=== PATIENT | female | born 1940 | race Caucasian/White ===

== ENCOUNTER 2019-11-15 12:56 | Observation (INO) ==
[2019-11-15] MEDS ORDERED: Isovue-370 500 ML BOTTLE IVP ONE (13:13)
[2019-11-15 13:32] LABS: Basophils % 0.4 %; Eosinophils # 0.1 K/mcL (0.0-0.6); Eosinophils % 0.9 %; Hematocrit 36.9 % (35.3-44.9); Hemoglobin 12.9 g/dL (11.5-15.4); Immature Granulocytes % 0.4 % (0-4); Lymphocytes # 1.6 K/mcL (0.6-4.6); Mean Corpuscular Hemoglobin 30.7 pg (28.0-33.3); Mean Corpuscular Volume 87.9 fL (83.0-100.0); Mean Platelet Volume 8.8 fL (9.4-12.4); Monocytes # 0.3 K/mcL (0.0-1.3); Monocytes % 5.8 %; Neutrophils # 3.6 K/mcL (1.6-8.9); Platelet Count 211 K/mcL (140-400); Red Cell Distribution Width 11.7 % (11.5-14.5); Segmented Neutrophils % 63.5 %; White Blood Count 5.7 K/mcL (4.3-11.1)
[2019-11-15 13:46] LABS: BUN/Creatinine Ratio 39 (6-26); Blood Urea Nitrogen 27 mg/dL (8-23); Calcium 11.3 mg/dL (8.6-10.3); Carbon Dioxide 28 mEq/L (23-29); Chloride 91 mEq/L (98-107); Glucose 107 mg/dL (70-105); Osmolality,Calculated 268 (280-300); Sodium 126 mEq/L (136-145); eGFR For African Americans > 60 (> 60); eGFR For Non-African Americans > 60 (> 60)
[2019-11-15] MEDS ORDERED: Naloxone 0.4 MG/ML INJ IVP PRN (15:10)
[2019-11-15] MEDS ORDERED: Acetaminophen 325 MG TABLET PO PRN (15:10)
[2019-11-15] MEDS ORDERED: Ondansetron 4 MG/2 ML VIAL IVP PRN (15:10)
[2019-11-15] MEDS: 0.9 % Sodium Chloride 1,000 ML IVC SCH (17:59)
[2019-11-15] MEDS: MethylPREDNISolone 40 MG/ML VIAL IVP SCH ×2 (18:00→23:17)
[2019-11-15] MEDS: Famotidine 20 MG/2 ML VIAL IVP SCH (18:00)
[2019-11-16] MEDS: 0.9 % Sodium Chloride 1,000 ML IVC SCH (06:47)
[2019-11-16] MEDS: MethylPREDNISolone 40 MG/ML VIAL IVP SCH ×2 (06:48→16:29)
[2019-11-16] MEDS: Famotidine 20 MG/2 ML VIAL IVP SCH ×2 (06:48→19:09)
[2019-11-16 07:33] LABS: Hematocrit 35.8 % (35.3-44.9); Hemoglobin 12.2 g/dL (11.5-15.4); Mean Corpuscular HGB Conc 34.1 g/dL (31.6-35.5); Mean Corpuscular Hemoglobin 30.2 pg (28.0-33.3); Mean Corpuscular Volume 88.6 fL (83.0-100.0); Mean Platelet Volume 9.2 fL (9.4-12.4); Platelet Count 238 K/mcL (140-400); Red Blood Count 4.04 M/mcL (3.82-4.97); Red Cell Distribution Width 11.8 % (11.5-14.5); White Blood Count 5.6 K/mcL (4.3-11.1)
[2019-11-16 07:50] LABS: BUN/Creatinine Ratio 43 (6-26); Blood Urea Nitrogen 29 mg/dL (8-23); Calcium 10.4 mg/dL (8.6-10.3); Carbon Dioxide 24 mEq/L (23-29); Chloride 98 mEq/L (98-107); Glucose 222 mg/dL (70-105); Osmolality,Calculated 281 (280-300); Potassium 4.8 mEq/L (3.5-5.1); Sodium 129 mEq/L (136-145); eGFR For African Americans > 60 (> 60); eGFR For Non-African Americans > 60 (> 60)
[2019-11-16] MEDS ORDERED: amLODIPine 5 MG TABLET PO SCH (09:00)
[2019-11-16 19:37] VITALS: BP 162/83
== END 2019-11-16 19:45 | disposition home or self-care (01) ==
LOC: EMEROOPIK 12:56 → INPPIK 12:56
PROVIDERS: ADMIT Family Medicine; ATTEND Family Medicine